=== PATIENT | male | born 1935 | race Caucasian/White ===

== ENCOUNTER 2018-05-15 12:16 | Emergency (ER) | payer MEDICARE ==
[2018-05-15] MEDS ORDERED: Sodium Chloride 0.9% 1,000 ML IV SCH (14:00)
[2018-05-15] MEDS ORDERED: Sodium Chloride 0.9% 1,000 ML ONE (14:06)
[2018-05-15 14:08] LABS: BASO # 0.1 K/uL (0.0-0.2); BASO % 0.7 % (0.0-2.0); EOS # 0.2 K/uL (0.0-0.7); EOS % 1.5 % (0.0-4.0); HEMOGLOBIN 12.8 g/dL (12.0-18.0); LYMPH # 1.4 K/uL (1.0-4.3); LYMPH % 11.6 % (20.0-40.0); MEAN CELL VOLUME 93.6 fL (80.0-94.0); MEAN CORPUSCULAR HEMOGLOBIN 30.9 pg (27.0-31.0); MEAN PLATELET VOLUME 8.3 fL (7.2-11.7); MONO % 7.8 % (0.0-10.0); NEUT # 9.6 K/uL (1.8-7.0); NEUT % 78.4 % (50.0-75.0); RBC 4.14 Mil/uL (4.40-5.90); RED CELL DISTRIBUTION WIDTH 13.1 % (11.5-14.5); WHITE BLOOD COUNT 12.2 K/uL (4.8-10.8)
[2018-05-15 14:21] LABS: ALB/GLOB RATIO 1.1 (1.0-2.1); ALBUMIN 4.2 g/dL (3.5-5.0); ALT/SGPT 20 U/L (21-72); AST/SGOT 34 U/L (17-59); BLOOD UREA NITROGEN 18 mg/dL (9-20); CALCIUM 9.1 mg/dl (8.6-10.4); GFR NON-AFRICAN AMERICAN > 60
--- NOTE | 2018-05-15 14:59 | RAD ---
Date of service: 05/15/2018 PROCEDURE: Radiographs of the pelvis. HISTORY: s/p fall - r/o fx COMPARISON: None. FINDINGS: BONES: Pelvic Bones: Unremarkable. Hips: Grossly unremarkable. JOINTS: Sacroiliac Joints: Unremarkable. Pubic Symphysis: Unremarkable. OTHER FINDINGS: None. IMPRESSION: Unremarkable radiographs of the pelvis.
--- NOTE | 2018-05-15 15:01 | RAD ---
Date of service: 05/15/2018 PROCEDURE: CHEST RADIOGRAPH, 1 VIEW HISTORY: weakness r/o infiltrate COMPARISON: None available. FINDINGS: LUNGS: Mild nonspecific opacity at the right lung base. Possible pneumonia. Follow-up advised. No infiltrate elsewhere. PLEURA: No pneumothorax or pleural fluid seen. CARDIOVASCULAR: No aortic atherosclerotic calcification present. Normal. OSSEOUS STRUCTURES: No significant abnormalities. VISUALIZED UPPER ABDOMEN: Normal. OTHER FINDINGS: None. IMPRESSION: Possible early pneumonia at right base. Recommend follow-up examination.
[2018-05-15 15:42] LABS: SQUAMOUS EPITHIAL < 1 /hpf (0-5); URINE BILIRUBIN NEGATIVE (NEGATIVE); URINE BLOOD 2+ (NEGATIVE); URINE CLARITY Clear (Clear); URINE COLOR Yellow (YELLOW); URINE GLUCOSE (UA) NORMAL (Normal); URINE LEUKOCYTE ESTERASE NEG Leu/uL (Negative); URINE PROTEIN NEGATIVE (NEGATIVE); URINE UROBILINOGEN NORMAL mg/dL (0.2-1.0)
--- NOTE | 2018-05-15 16:39 | C.PDOC ---
History Of Present Illness 82 y/o male brought in by for worsening dementia. States that she cannot take care of him any longer. Otherwise denies any fever, cough, chest pain, SOB, or other complaints. states that patient is at baseline mentation and has been slowly declining over the past several months. Patient complains of low back pain. Time Seen by Provider: 05/15/18 13:45 Chief Complaint (Nursing): Back Pain History Per: Patient History/Exam Limitations: clinical condition (Dementia) Onset/Duration Of Symptoms: Days Current Symptoms Are (Timing): Still Present Past Medical History Reviewed: Historical Data, Nursing Documentation, Vital Signs Vital Signs: Last Vital Signs Temp 97.6 F 05/15/18 12:20 Pulse 73 05/15/18 14:45 Resp 20 05/15/18 14:45 BP 167/77 H 05/15/18 14:45 Pulse Ox 98 05/15/18 14:45 - Medical History PMH: Asthma, COPD, Dementia, HTN, Hypercholesterolemia Surgical History: Coronary Stent Family History: States: No Known Family Hx - Social History Hx Alcohol Use: No Hx Substance Use: No - Immunization History Hx Tetanus Toxoid Vaccination: No Hx Influenza Vaccination: Yes (02/2018) Hx Pneumococcal Vaccination: No Review Of Systems Review Of Systems: ROS cannot be obtained secondary to pt's inabilty to answer questions. (Limited secondary to pt's dementia) Musculoskeletal: Positive for: Back Pain Physical Exam - Physical Exam Appears: Non-toxic, No Acute Distress Skin: Normal Color, Warm, Dry Head: Atraumatic, Normacephalic Eye(s): bilateral: Normal Inspection, PERRL, EOMI Oral Mucosa: Moist Neck: Normal ROM Chest: Symmetrical Cardiovascular: Rhythm Regular, No Murmur Respiratory: Normal Breath Sounds, No Rales, No Rhonchi, No Wheezing Gastrointestinal/Abdominal: Soft, No Tenderness, No Distention Back: No CVA Tenderness Extremity: Bilateral: Atraumatic, Normal Color And Temperature Neurological/Psych: Other (Awake, alert, cooperative with exam, at base line per ) ED Course And Treatment - Laboratory Results Result Diagrams: 05/15/18 14:04 05/15/18 14:04 O2 Sat by Pulse Oximetry: 98 (RA) Pulse Ox Interpretation: Normal - Other Rad Pelvic x-ray X-Ray: Read By Radiologist Interpretation: Accession No. : [id number]. Patient Name / ID : THERON BLANK / [id number]. Exam Date : 05/15/2018 14:27:35 ( Approved ). Study Comment : Sex / Age : M / 82Y. Creator : Terrell Deshpande MD. Dictator : Terrell Deshpande MD. Lens Gauger : Language Assistant : Terrell Deshpande MD. Approver2 : Report Date : 05/15/2018 14:56:01. My Comment : . Date of service: 05/15/2018. PROCEDURE: Radiographs of the pelvis. HISTORY: s/p fall - r/o fx. COMPARISON: None. FINDINGS: BONES: Pelvic Bones: Unremarkable. Hips: Grossly unremarkable. JOINTS: Sacroiliac Joints: Unremarkable. Pubic Symphysis: Unremarkable. OTHER FINDINGS: None. IMPRESSION: Unremarkable radiographs of the pelvis. Medical Decision Making Medical Decision Making: Impression: worsening dementia Plan: --Blood work --Urinalysis --Urine culture --Pelvic x-ray --IVF hydration Labs and imaging reviewed, discussed with patient and . Slitter And Rewinder Machine Operator came down, spoke to patients , and provided resources for detention placement. Advised to follow up with PMD. Disposition - Disposition Referrals: Enedina Correia MD [Staff Provider] - Disposition: HOME/ ROUTINE Disposition Time: 15:30 Condition: GOOD Additional Instructions: ROSAMARIA CRUMP, thank you for letting us take care of you today. The emergency medical care you received today was directed at your acute symptoms. If you were prescribed any medication, please fill it and take as directed. It may take several days for your symptoms to resolve. Return to the Emergency Department if your symptoms worsen, do not improve, or if you have any other problems. Please contact your doctor or call one of the physicians/clinics you have been referred to that are listed on the Patient Visit Information form that is included in your discharge packet. Bring any paperwork you were given at disch arge with you along with any medications you are taking to your follow up visit. Our treatment cannot replace ongoing medical care by a primary care provider outside of the emergency department. Thank you for allowing the [facility] team to be part of your care today. Follow up with your primary care doctor this week for further management and discussion on Nursing Homes. Instructions: Dementia (Including Alzheimer Disease) Forms: [employer] ([place]) - Clinical Impression Clinical Impression: Dementia - Scribe Statement The provider has reviewed the documentation as recorded by the Vannessa Mills Provider Attestation: All medical record entries made by the Vannessa were at my direction and personally dictated by me. I have reviewed the chart and agree that the record accurately reflects my personal performance of the history, physical exam, medical decision making, and the department course for this patient. I have also personally directed, reviewed, and agree with the discharge instructions and disposition.
[2018-05-15 19:47] VITALS: BP 145/89; PULSE 74; RESP 28; TEMP 98.4
[2018-05-16 00:29] VITALS: O2SAT 98
== END 2018-05-15 19:48 | disposition home or self-care (01) ==
LOC: C.ER 12:16
DX: F03.90 Unspecified dementia, unspecified severity, without behavioral disturbance, psychotic disturbance, mood disturbance, and anxiety (principal)
CPT/HCPCS: 71045; 72170; 80053; 81001; 85025; 87086; 99285; J7030